=== PATIENT | female | born 1995 | race Caucasian/White ===

== ENCOUNTER 2023-06-20 15:21 | Outpatient (AMB) | payer OTHER, SELFPAY ==
--- NOTE | 2023-06-20 16:03 | AM.OFFWIN_ITS ---
Intake Vital Signs 06/20/23 16:05 Height 5 ft 6 in Weight 190 lb BMI 30.7 BP 116/70 Blood Pressure Location Lt brachial Position Sitting Pulse 80 Pulse Source Pulse Oximeter Temp 98.2 F Temp Source Temporal Artery Scan Pulse Oximetry (%) 98 Oxygen Delivery Method Room Air Intake Visit Reasons: [employer] Back/AB/Neck pain NO Car Intake Note: pt is here today for back AB neck pain started 4 days ago Patient Tobacco Use Status: Never used Tobacco Is last menstrual period known: Yes Patient : No Allergies No Known Allergies Allergy (Verified 06/20/23 16:07) Medication List - Last Reconciled 06/22/23 by Miah Guthrie MD cyclobenzaprine 10 mg PO BEDTIME meloxicam 15 mg PO DAILY Do you need a note to return to daycare/school/sports/work: No HPI [employer] Back/AB/Neck pain NO Car HPI Details 28-year-old female presents to the [facility] for a sick visit. Patient is complaining of neck and upper back pain for the past few days. No history of fall or injury prior to the onset of symptoms. No weakness in the arms. [facility] Social History Patient Tobacco Use Status: Never used Tobacco Physical Exam Vital Signs: Last Vital Signs Temp 98.2 F 06/20/23 16:05 Pulse 80 06/20/23 16:05 BP 116/70 06/20/23 16:05 Pulse Ox 98 06/20/23 16:05 Oxygen Delivery Method Room Air 06/20/23 16:05 BMI result Body Mass Index 30.7 Const General: cooperative and healthy appearing Nutritional Appearance: well nourished Orientation/consciousness: patient oriented x3 Limitations: no limitations HEENT Head: Yes normal to inspection Eyes General: appearance normal, both eyes and all related structures Neck Other: neck: Bilateral trapezius muscle discomfirt. Neck: Yes normal visual inspection Chest Chest palpation & inspection: normal palpation of entire chest wall Resp Effort & Inspection: normal respiratory effort Neuro General: patient oriented x3 Assessment & Plan Assessment & Plan (1) Neck pain: Code(s): M54.2 - Cervicalgia Plan: Meloxicam and cyclobenzaprine have been called in. If sx not better to follow up here. Orders: Orders SARS-CoV2/FLU/RSV 06/21/23 R43.9 - Unspecified disturbances of smell and taste Medications: New meloxicam 15 mg PO DAILY 14 tabs 0RF cyclobenzaprine 10 mg PO BEDTIME 14 tabs 0RF Coding Level of Care Code Est Pt Level 3 (57641) Diagnoses Neck pain M54.2
[2023-06-20 16:05] VITALS: BP 116/70; PULSE 80; TEMP 36.8; O2SAT 98; BMI 30.7
== END 2023-06-20 16:54 | disposition home or self-care (01) ==
PROVIDERS: Visit Provider Internal Medicine
DX: M54.2 Cervicalgia (principal)
CPT/HCPCS: 99213

== ENCOUNTER 2023-06-20 17:31 | Outpatient (REF) | payer OTHER, SELFPAY ==
[2023-06-21 11:31] LABS: Influenza A PCR NEGATIVE (Negative); Influenza B PCR NEGATIVE (Negative); Resp Syncy Virus RNA Qual PCR NEGATIVE (Negative); SARS COV2 PCR INHOUSE NEGATIVE (Negative)
== END 2023-06-20 17:32 | disposition home or self-care (01) ==
LOC: HO.LAB 17:31
PROVIDERS: Visit Provider Internal Medicine
DX: R43.9 Unspecified disturbances of smell and taste (principal)
CPT/HCPCS: 0241U

== ENCOUNTER 2024-05-21 11:16 | Outpatient (AMB) | payer OTHER, SELFPAY ==
--- NOTE | 2024-05-21 11:46 | MHC.PC.OV ---
Vital Signs 05/21/24 12:00 Height 5 ft 6 in Weight 186 lb 6 oz BMI 30.1 BP 120/60 Blood Pressure Location Lt brachial Position Sitting Respiration 16 Pulse 82 Pulse Source Palpation Temp 98.2 F Temp Source Oral Intake Visit Reasons: Regular visit Intake Note: establish care Is last menstrual period known: Yes Last menstrual period: 05/09/24 Post menopausal: No Patient : No Allergies latex Allergy (Intermediate, Verified 05/21/24 11:49) Swelling Medication List - Last Reconciled 05/21/24 by Jeffry Shah MD No Known Home Meds Tobacco use date assessed: 05/21/24 Dental Screening Dental Screen Date: 05/21/24 Did you have a dental visit in the last 12 months?: Yes Did you have a dental problem in the last 6 months where you did not have access to dental care?: No Was dental information given to patient?: Patient has dentist HPI Regular visit HPI Details New?patient Prior?PCP: No PCP in years Last?office?visit/CPE: Acute?issue(s): Asthma fairly well controlled but triggered by allergies. Needs Proair. Allergies and uses Zyrtec PMHx: Asthma, Allergic Sinusitis, SurgHx: Tubal ligation FHx: Sister: Asthma. Mom: Uterine CA. Sister: ?MEN2 SocHx: Nonsmoker. EtOH 1-2 dr occassionally. No drugs HPI Comments History of Present Illness Details Documentation assistance for Jeffry Shah MD, was provided by Misha iFscher,? Industrial Services Worker on 05/21/2024 at 12:36 PM EST. I, Dr. Shah, have read, observed, and verified documentation. ?? PFSH Medical History (Updated 05/21/24 @ 12:22 by Misha Fischer) Hypoglycemia Sinus problem Asthma Surgical History (Updated 05/21/24 @ 11:55 by Laith Beck CMA) [place] teeth extracted H/O tubal ligation Family History (Updated 05/21/24 @ 11:57 by Laith Beck CMA) Mother Uterine cancer Maternal Grandmother Cancer Social History (Updated 05/21/24 @ 11:57 by Laith Beck CMA) Housing: Apartment Patient Tobacco Use Status: Never used Tobacco e-Cigarette/Vaping Use: Never Used Second Hand Smoke Exposure: No service: No Current occupational status: employed Current occupation: hair dressing Current occupational exposures/hazards: No Cognitive needs: No Hearing needs: No Vision needs: No Female Reproductive History Menstrual Date of last menstrual period: 05/09/24 Questionnaire PHQ-9 Over the last 2 weeks, how often have you been bothered by any of the following problems? 1. Little interest or pleasure in doing things: not at all 2. Feeling down, depressed, or hopeless: not at all 3. Trouble falling or staying asleep, or sleeping too much: not at all 4. Feeling tired or having little energy: several days 5. Poor appetite or overeating: not at all 6. Feeling bad about yourself - or that you are a failure or have let yourself or your family down: not at all 7. Trouble concentrating on things, such as reading the newspaper or watching television: not at all 8. Moving or speaking so slowly that other people could have noticed. Or the opposite - being so fidgety or restless that you have been moving around a lot more than usual: not at all 9. Thoughts that you would be better off or of hurting yourself in some way: not at all Total score: 1 Depression Screening Interpretation: Negative Depression Screening Done: Yes Source: Developed by Drs. J Carlos Wright, Mago Ruiz, Jabier Farooq and colleagues, with an educational obinna from [employer]. Thrive Questionnaire Date Thrive assessed: 05/21/24 I am a: Patient What is your living situation today?: I have a steady place to live Within the past 12 months, did the food you bought not last and you didn't have the money to get more?: I choose not to answer this question Within the past 12 months, did you worry whether your food would run out before you got money to buy more?: I choose not to answer this question Do you have trouble paying for medicines?: No Do you have trouble getting transportation to medical appointments?: No Do you have trouble paying your heating and electricity bill?: I choose not to answer this question Do you have trouble taking care of your child, family member or friend?: I choose not to answer this question Do you have trouble with day-to-day activities such as bathing, preparing meals, shopping, managing finances, etc.?: No Are you currently unemployed and looking for a job?: Yes Are you interested in more education?: I choose not to answer this question Please select the resources that you would like help with: None Currently or been in a relationship where the following occur: I choose not to answer THRIVE Score: 0 AUDIT C Alcohol Use Questionnaire (AUDIT-C) 1. How often do you have a drink containing alcohol?: Monthly or less 2. How many drinks containing alcohol do you have on a typical day when you are drinking?: 3 or 4 3. How often do you have six or more drinks on one occasion?: Never Total Score: 2 GREGG-7 AMB Questionnaire GREGG-7 Date GREGG - 7 assessed: 05/21/24 Feeling nervous, anxious, or on edge: 0 = Not at all Not being able to stop or control worryin = Not at all Worrying too much about different things: 0 = Not at all Trouble relaxin = Not at all Being so restless that it is hard to sit still: 1 = Several days Becoming easily annoyed or irritable: 0 = Not at all Feeling afraid as if something awful might happen: 0 = Not at all Total GREGG-7 score (0-4 normal; 5-9 mild; 10-14 moderate; 15-21 severe): 1 Source: Developed by Drs. J Carlos Wright, Mago Ruiz, Jabier Farooq and colleagues, with an educational obinna from [employer]. ACT Questionnaire In the past 4 weeks, how much of the time did your asthma keep you from getting as much done at work, school or at home?: Most of the time During the past 4 weeks, how often have you had shortness of breath?: Not at all During the past 4 weeks, how often did your asthma symptoms wake you up at night or earlier than usual in the morning?: Not at all During the past 4 weeks, how often have you had to use your rescue inhaler or nebulizer medication?: Once a week or less How would you rate your asthma control during the past 4 weeks?: Poorly controlled ACT Interpretation: Positive Score: 18 Review of Systems Const Denies chills, Denies fatigue, Denies fever(s), Denies headache(s) and Denies weakness ENT Denies dizziness and Denies headache(s) Card Denies chest pain, Denies lightheadedness, Denies dyspnea and Denies other (Palpitations) Resp Denies cough, Denies dyspnea, Denies wheezing and Denies other ( shortness of breath) Musc Denies numbness and Denies tingling Neuro Denies dizziness, Denies headache(s), Denies numbness, Denies tingling, Denies paresthesias and Denies weakness Psych Denies anxiety and Denies depression Endo Denies fatigue Aller/Immun Denies wheezing Physical exam (Primary Care) Vital Signs: Last Vital Signs Temp 98.2 F 05/21/24 12:00 Pulse 82 05/21/24 12:00 Resp 16 05/21/24 12:00 BP 120/60 05/21/24 12:00 BMI result Body Mass Index 30.1 Tobacco/Smoking Status: Tobacco use Status Tobacco use date assessed 05/21/24 05/21/24 12:06 Patient Tobacco Use Status Never used Tobacco 05/21/24 11:57 e-Cigarette/Vaping Use Never Used 05/21/24 12:06 PHQ-9: PHQ-9 Score PHQ-9: Total score 1 05/21/24 12:18 Depression Screening Interpretation: Negative Thrive Assessment: Date of Thrive Assessment Date Thrive assessed 05/21/24 05/21/24 11:47 Currently or been in a relationship where the following occur: I choose not to answer Const General: no acute distress and well developed Nutritional Appearance: well nourished Orientation/consciousness: patient oriented x3 HENMT Head: Yes normocephalic and Yes atraumatic Eyes General: appearance normal, both eyes and all related structures Pupils: Equal, round and reactive pupils present EOM: EOMs intact bilaterally Resp Effort & Inspection: normal respiratory effort Auscultation: clear to auscultation bilaterally Cardio Rate: regular rate Rhythm: regular rhythm Heart sounds: S1 normal heart sound present, S2 normal heart sound present, no gallops, no murmurs and no rubs Neuro General: patient oriented x3 and gait normal Cranial nerves: Yes Equal, round and reactive pupils present Psych Affect: normal affect Coding Level of Care Code New Pt Level 3 (71592) Diagnoses Asthma J45.909 Allergies T78.40XA Laboratory exam ordered as part of routine general medical examination Z00.00 Additional Codes Asthma Control Questionnaire - ACT Interpretation: Positive ([id number]) Assessment & Plan Assessment & Plan (1) Asthma: Code(s): J45.909 - Unspecified asthma, uncomplicated Category: Medical Plan: Moderate?persistent?asthma Refilled?albuterol?inhaler?and?restarted?her?on?a?controller?medication Primary?trigger?is?allergies Avoid?triggers?use?medications?prescribed If?not?well?controlled?would?consider?referral?to?immunology. (2) Allergies: Code(s): T78.40XA - Allergy, unspecified, initial encounter Category: Medical Plan: Can?use?Zyrtec Will?also?give?her?a?script?for?Flonase. (3) Laboratory exam ordered as part of routine general medical examination: Code(s): Z00.00 - Encounter for general adult medical examination without abnormal findings Category: Medical Plan: Check labs Orders: Orders Complete Blood Count Auto Diff Today Z00.00 - Encounter for general adult medical examination without abnormal findings UA and rflx microscopic Today Z00.00 - Encounter for general adult medical examination without abnormal findings Comprehensive [place]. Panel Fast Today Z00.00 - Encounter for general adult medical examination without abnormal findings Microalbumin, Random (w Creat) Today I10 - Essential (primary) hypertension Lipid Panel Today Z00.00 - Encounter for general adult medical examination without abnormal findings TSH reflex Free T4 Today Z00.00 - Encounter for general adult medical examination without abnormal findings Medications: New budesonide 90 mcg/actuation (Pulmicort Flexhaler) 1 inh inhalation Q12H 30 days 1 ea 3RF albuterol sulfate 90 mcg/actuation (Proair Digihaler) 1 inh inhalation Q4-6H 30 days PRN 1 ea 3RF shortness of breath or wheezing fluticasone propionate 50 mcg/actuation (Flonase Allergy Relief) administer into each nostril 1 spray intranasal Q12H 30 days 16 grams 2RF
[2024-05-21 12:00] VITALS: BP 120/60; PULSE 82; RESP 16; TEMP 36.8; BMI 30.1
== END 2024-05-21 12:37 | disposition home or self-care (01) ==
PROVIDERS: Visit Provider Family Medicine
DX: J45.909 Unspecified asthma, uncomplicated (principal); T78.40XA Allergy, unspecified, initial encounter; Z00.00 Encounter for general adult medical examination without abnormal findings

== ENCOUNTER 2024-06-19 09:32 | Outpatient (REF) | payer OTHER, SELFPAY ==
--- OUTSIDE RECORDS SUMMARY | 2024-06-19 10:01 | XMS_ITS | Clinical Summary ---
Author Organization [facility] ity Address [address] [place] [address] Care Team Providers Care Clinical Engineering Manager Name Role Phone Martínez Haley MD Primary Care Provider [phone] Social History Tobacco Use Types Packs/Day Years Used Date Smoking Tobacco: Never Assessed Sex and Gender Information Value Date Recorded Sex Assigned at Not on file Gender Identity Not on file Sexual Orientation Not on file Plan of Treatment Health Maintenance Due Date Last Done Comments DTaP,Tdap,and Td Vaccines (1 - Tdap) 2014 Hepatitis B Vaccines (1 of 3 - 19+ 3-dose series) 2014 Cervical Cancer Screening: P ap Smear 2016 Depression Screening 05/05/2022 HIV Screening 05/05/2022 Hepatitis C Screening 05/05/2022 Social Influencers of Health Screening 05/05/2022 COVID-19 Vaccine (2023-2 5 season) 2024 Influenza Vaccine (#1) 2024 HIB Vaccines Aged Out No longer eligi ble based on patient's age to complete this topic HPV Vaccines Aged Out No longer eligi ble based on patient's age to complete this topic Hepatitis A Vaccines Aged Out No long er eligible based on patient's age to complete this topic IPV Vaccines Aged Out No longer eligi ble based on patient's age to complete this topic MMR Vaccines Aged Out No longer eligi ble based on patient's age to complete this topic Meningococcal ACWY Vaccine Aged Out N o longer eligible based on patient's age to complete this topic Pneumococcal Vaccine: Pediat rics (0 to 5 Years) and At-Risk Patients (6 to 64 Years) Aged Out No longer eligible b ased on patient's age to complete this topic RSV Immunization Patients Un kelsey 20 months Aged Out No longer eligible b ased on patient's age to complete this topic Varicella Vaccines Aged Out No longer eligible based on patient's age to complete this topic Care Teams Clinical Engineering Manager Relationship Specialty Start Date End Date Martínez Haley MD [address] [place], [place] [id number] [id number] PCP - General 02/15/22
[2024-06-19 11:17] LABS: MANUAL DIFF FLAG NO
[2024-06-19 11:24] LABS: Basophils Absolute Auto 0.1 X10*3/uL (0.0-0.2); Basophils Percent Auto 1.1 % (0-2); Eosinophils Absolute Auto 0.1 X10*3/uL (0.0-0.4); Eosinophils Percent Auto 1.5 % (0-4); Hematocrit 40.3 % (37.0-47.0); Hemoglobin 12.8 g/dl (12.0-16.0); Imm Gran Abs Auto 0.01 X10*3/uL (0.00-0.03); Imm Gran Pct Auto 0.2 % (0.0-0.4); Lymphocytes Absolute Auto 2.3 X10*3/uL (1.2-4.9); Lymphocytes Percent Auto 35.5 % (20-40); Mean Corpuscular HGB Conc 31.8 g/dl (31.0-35.0); Mean Corpuscular Hemoglobin 31.1 pg (27.0-33.0); Mean Corpuscular Volume 97.8 fL (80.0-98.0); Mean Platelet Volume 10.9 fL (9.4-12.3); Monocytes Absolute Auto 0.4 X10*3/uL (0.1-1.2); Monocytes Percent Auto 6.3 % (2-11); Neutrophils Absolute Auto 3.6 x10*3/uL (2.0-8.3); Neutrophils Percent Auto 55.4 % (45-73); Platelet Count 225 X10*3/uL (160-400); Red Blood Count 4.12 X10*6/uL (4.20-5.50); Red Cell Distribution Width 13.1 % (11.0-16.0); White Blood Count 6.5 X10*3/uL (4.8-10.8)
[2024-06-19 11:31] LABS: Appearance Urine Clear; Color Urine Yellow; Glucose Urine UA Negative (Negative); Leukocyte Esterase Urine Negative (Negative); Nitrite Urine Negative (Negative); Specific Gravity - Urine 1.025 (1.005-1.025); Urine Blood Negative (Negative); Urine Ketones Negative (Negative); Urine Protein Negative (Neg-Trace)
[2024-06-19 12:05] LABS: Microalbumin Urine < 5.0 mg/L
[2024-06-19 12:18] LABS: Alanine Aminotransferase 15 U/L (0-31); Albumin Level 3.9 g/dL (3.5-5.0); Alkaline Phosphatase 56 U/L (39-117); Anion Gap 7 (12-20); Aspartate Amino Transferase 16 U/L (5-31); Bilirubin Total 0.5 mg/dL (0.0-1.0); Blood Urea Nitrogen 12 mg/dL (9-16); Calcium 8.7 mg/dL (8.4-10.2); Carbon Dioxide 27 mmol/L (22-29); Chloride 110 mmol/L (96-108); Cholesterol 156 mg/dL (<200); Estimated Glomerular Filt Rate > 60; Glucose Fasting 79 mg/dL (60-99); HDL Cholesterol 51 mg/dL (>40); LDL Cholesterol Calculated 86 mg/dL (<100); Potassium 4.2 mmol/L (3.3-5.1); Sodium 140 mmol/L (135-145); Total Protein 6.9 g/dL (6.5-8.0); Triglycerides 99 mg/dL (<150)
[2024-06-19 12:24] LABS: TSH reflex Free T4 0.87 uIU/mL (0.32-4.0)
== END 2024-06-19 09:33 | disposition home or self-care (01) ==
LOC: HO.WFDLDS 09:32
PROVIDERS: Visit Provider Family Medicine
DX: Z00.00 Encounter for general adult medical examination without abnormal findings (principal); I10 Essential (primary) hypertension
CPT/HCPCS: 36415; 80053; 80061; 81003; 82043; 82570; 84443; 85025